=== PATIENT | male | born 1960 | race Caucasian/White ===

== ENCOUNTER 2016-11-14 07:11 | Inpatient (IN) | payer OTHER ==
[~2016-11-14] VITALS: Ht 182.9 cm; Wt 85.8 kg
--- NOTE | ~2016-11-14 | CON ---
[place], [place] REPORT OF CONSULTATION NAME: ANTONIO DIAZ UNIT #: [id number] ROOM: 516 DOCTOR: REVA SANDOVALNORMANREAL BIRTHDATE: [birth year] DOS: 11/14/2016 REQUESTING PHYSICIAN: Dr. Blair Martinez. REASON FOR CONSULTATION: Chest pain. ASSESSMENT: 1. Current presentation with previous history of chest pain. 2. Worsening symptoms in frequency and intensity. 3. Symptomatic palpitation along with shortness of breath and dyspnea on exertion. 4. Unknown level of lipids. 5. Baseline bradycardia with low blood pressure precludes any blood pressure medication. PLAN: 1. Cycle cardiac enzymes. 2. Initiate enteric-coated aspirin 81 mg. 3. No option for beta myra or nitrate products. 4. Check fasting lipid panel with management for an LDL less than 70 mg/dL. 5. Keep the patient n.p.o. for a walking stress test with nuclear. 6. Call back should there be any continued complain of chest pain despite the possibility of a normal stress test. 7. Early followup in our clinic within 4-6 weeks. HISTORY AND PHYSICAL: The patient is a pleasant 56-year-old gentleman unknown to our practice, was referred by Dr. Martinez for evaluation of chest pain that apparently has been going for the past 3 weeks. The pain is left-sided, dull, aching. In the beginning, it was occurring quite sporadically, lasting seconds, but overtime became more increased in frequency and intensity. The pain became pressure, heaviness, tightness radiating to the left shoulder and the left side of the jaw. It occurs now a few times a day. Overall, has no relation to activity. The patient started noticing about a week ago some pounding heart beats with these chest pains and subsequently shortness of breath and dyspnea on exertion. Yesterday, he had a significant episode; it reached almost 7/10. The patient felt slightly sweaty and presented to the Emergency Room. Never had this complaint before 3 weeks. He was active. Denies any specific cardiac complaint. Never had any dizziness, lightheadedness, or near syncope. No PND, orthopnea or pedal edema. No fever, no chills, no night sweats, maintained good appetite, no weight loss. PAST MEDICAL HISTORY: As detailed in my assessment. SOCIAL HISTORY: The patient denies ever any tobacco, alcohol, or illicit drug abuse. FAMILY HISTORY: The patient's father at age 83 of CVA. His mother at age 51 from a motor vehicle accident. He has 4 brothers and 2 sisters with no reported heart problems. [place], [place] REPORT OF CONSULTATION NAME: ANTONIO DIAZ UNIT #: [id number] ROOM: 516 DOCTOR: RAYNA ARDON MD BIRTHDATE: [birth year] CURRENT MEDICATIONS: Multivitamin, aspirin, Restoril, bisacodyl, Dulcolax, Tylenol. ALLERGIES: The patient has no known drug allergies. REVIEW OF SYSTEMS: The patient denies any current headache, diplopia, or blurry vision. No fever, no chills, no night sweats. No abdominal pain, no bright blood per rectum, no tarry stools. No joint pain, no muscular pain. No anxiety, no depression. No polyuria, no polydipsia. No skin rash. Review of all other systems has been negative. PHYSICAL EXAMINATION: GENERAL: The patient is alert, oriented x3, quite pleasant, slightly anxious. VITAL SIGNS: Blood pressure 115/74, heart rate 55, respiratory rate of 14, temperature 97.3. HEENT: Extraocular muscles intact. Pupils equal, round, reactive to light. Conjunctivae, no pallor. Throat, no petechiae. NECK: Good carotid upstroke. Unable to appreciate any bruit, no lymphadenopathy, no thyromegaly. HEART: S1, S2 with no rub. No retrosternal heave. CHEST AND BACK: No deformities. LUNGS: Clear to auscultation with no wheezing, no rales. ABDOMEN: Soft, nontender, present bowel sounds, no masses, no bruits. EXTREMITIES: Lower extremities, no edema with good distal pulses. NEUROLOGIC: Grossly nonfocal. SKIN: No significant rash. LABORATORY DATA: White count 6.4, hemoglobin 14.1. INR 1.0. BUN 12, creatinine 0.9, magnesium 2.2. Troponin less than 0.015. CPK-MB 3.0, CK is 115. Lipase 377. RAYNA ARDON MD CM:CONSTR:REPORT OF CONSULTATION 1036 11/15/16 0012 interface
--- NOTE | ~2016-11-14 | ST ---
[place], [place] EXERCISE STRESS TEST REPORT NAME: ANTONIO DIAZ UNIT #: [id number] ROOM: 516 DOCTOR: RAYNA ARDON MD BIRTHDATE: [birth year] DOS: INDICATION: Chest pain. PROCEDURE: The patient was exercised on a treadmill using Mick protocol, the patient exercised for 9 minutes and 30 seconds, reaching 97% of his maximum predicted heart rate. Maximum workload was 12 METS. Double product 31,800. Test was terminated due to fatigue. The patient did develop shoulder pain, which could be his angina equivalent. Slight chest pain also at the end of the exercise. The pain was completely non-limiting. BLOOD PRESSURE RESPONSE: Resting blood pressure 104/60 with ending blood pressure of 200/54. ELECTROCARDIOGRAM INTERPRETATION: Resting electrocardiogram showing sinus bradycardia, heart rate of 49. There is criteria for early repolarization. At the peak of the stress test, there was no evidence of any significant ST or T-wave changes suggestive of myocardial ischemia. No arrhythmias were noted. SUMMARY: 1. Adequate stress test with good functional capacity. 2. Negative treadmill stress test for stress induced myocardial ischemia by EKG criteria. 3. Positive treadmill stress test for stress induced myocardial ischemia by symptomatology. 4. Moderate risk stress test with Amado score. 5. Normal blood pressure at rest with normal blood pressure response to exercise. 6. No arrhythmias were noted except for rare PVCs, which were asymptomatic. 7. Nuclear images will be reported separately. RAYNA ARDON MD CM:STRESS:EXERCISE STRESS TEST REPORT [id number] RAYNA ARDON MD
[~2016-11-14 07:11] MED LIST: HYDROCODONE BIT1 T11 PO; MOTRIN800 MG PO; NKHM
[2016-11-14 07:25] VITALS: BP 144/90
[2016-11-14] MEDS ORDERED: ASPIRIN325 MG PO (07:26)
[2016-11-14] MEDS ORDERED: MEN'S MULTI-VI1 EACH PO (07:26)
[2016-11-14 07:36] LABS: BASO % 0.2 % (0.0-1.0); EOS # 0.2 10*3/uL (0.0-0.4); EOS % 3.6 % (1.0-4.0); HEMATOCRIT 41.6 % (42.0-52.0); HEMOGLOBIN 14.1 g/dl (14.0-18.0); LYMPH # 1.8 10*3/uL (1.3-4.4); LYMPH % 27.8 % (27.0-41.0); MEAN CELL VOLUME 88.1 fl (80.0-94.0); MEAN CORPUSCULAR HGB 29.9 pg (27.0-31.0); MEAN CORPUSCULAR HGB CONC 33.9 g/dl (33.0-37.0); MEAN PLATELET VOLUME 10.6 fl (9.6-12.3); MONO # 0.5 10*3/uL (0.1-1.0); NEUT # 3.9 10*3/uL (2.3-7.9); NEUT % 61.1 % (47.0-73.0); PLATELET COUNT AUTOMATED 192 10*3/uL (130-400); RED BLOOD COUNT 4.72 10*6/uL (4.50-5.90); RED CELL DISTRI WIDTH 12.7 % (0-14.5); WHITE BLOOD COUNT 6.4 10*3/uL (4.8-10.8)
[2016-11-14 07:45] LABS: PROTHROMBIN TIME 10.1 SECONDS (9.0-12.4)
[2016-11-14 07:55] LABS: ALBUMIN 3.5 gm/dl (3.1-4.5); ALKALINE PHOSPHATASE 97 U/L (45-117); BILIRUBIN, TOTAL 0.5 mg/dl (0.2-1.0); BUN 12 mg/dl (7-24); CARBON DIOXIDE 27 mmol/L (21-32); CHLORIDE 106 mmol/L (98-107); EST GLOM FILT AFRICAN AMERICAN > 60 ml/min; GLUCOSE 97 mg/dL (65-99); MAGNESIUM 2.2 mg/dL (1.5-2.1); POTASSIUM 3.9 mmol/L (3.5-5.1); SGOT/AST 30 IU/L (3-35); SGPT/ALT 43 U/L (12-78); SODIUM 142 mmol/L (136-145); TOTAL PROTEIN 7.1 gm/dL (6.4-8.2)
[2016-11-14 08:01] LABS: TROPONIN I < 0.015 ng/ml (<0.045)
[2016-11-14 08:17] VITALS: BP 126/84
[2016-11-14 08:37] VITALS: BP 122/78
[2016-11-14 09:00] VITALS: BP 115/74
[2016-11-14 10:35] LABS: CKMB 2.9 ng/ml (0.5-3.6)
[2016-11-14 10:59] LABS: CHOLESTEROL 200 mg/dL (<200); HDL CHOLESTEROL 44 mg/dl (40-60); LDL CHOLESTEROL 114 mg/dL (9-159); TRIGLYCERIDES 210 mg/dl (<150); VLDL CHOLESTEROL 42 mg/dL (6-40)
[2016-11-14 12:00] VITALS: BP 119/74
[2016-11-14 13:55] LABS: CKMB 2.6 ng/ml (0.5-3.6)
[2016-11-14] MEDS ORDERED: PROTONIX20 MG PO (15:44)
[2016-11-14 16:00] VITALS: BP 119/70
== END 2016-11-14 16:45 | disposition home or self-care (01) | DRG 313 ==
LOC: ED 07:11 → EDHOLD 08:41 → 5E 08:54
PROVIDERS: Emergency Medicine; Internal Medicine Cardiovascular Disease; Student in an Organized Health Care Education/Training Program
PROC: 4A02XM4 Measurement of Cardiac Total Activity, External Approach (ICD-10-PCS; principal; 2016-11-14)
DX: R07.9 Chest pain, unspecified (principal); E83.41 Hypermagnesemia; I10 Essential (primary) hypertension; Z96.651 Presence of right artificial knee joint; E78.1 Pure hyperglyceridemia; R00.1 Bradycardia, unspecified; Z82.3 Family history of stroke; Z79.82 Long term (current) use of aspirin; Z79.899 Other long term (current) drug therapy

== ENCOUNTER → 2017-05-27 | Day surgery (SDC) | payer OTHER ==
[~2017-05-27] VITALS: Ht 182.8 cm; Wt 83.9 kg
[~2017-05-27] MED LIST changes: +ASPIRIN325 MG PO; +MEN'S MULTI-VI1 EACH PO; +PROTONIX20 MG PO
--- NOTE | ~2017-05-27 | O ---
[place], [place] OPERATIVE NOTE NAME: ANTONIO DIAZ UNIT #: [id number] ROOM: DOCTOR: DOV IBRAHIM MD BIRTHDATE: [birth year] DOS: 05/27/2017 HISTORY OF PRESENT ILLNESS: A 57-year-old patient presented with chief complaint of persistent dyspepsia despite PPI therapy, undergoing investigation. Cardiac workup has been negative. ALLERGIES: No known medication. FAMILY HISTORY: Noncontributory. PAST SURGICAL HISTORY: Bilateral wrist repair, right knee prosthesis, left inguinal hernia. PAST MEDICAL HISTORY: GERD. SOCIAL HISTORY: Nonsmoker, rare alcohol consumer. PROCEDURE: Today's procedure part of investigation is panendoscopy plus biopsy. PREMEDICATION: Versed and Diprivan. SCOPE: Olympus forward-viewing gastroscope Q10 video. REPORT: After putting the patient in left lateral position and application of lubricant to the scope, the scope was introduced. Thereafter, under direct visualization, advanced through the length of esophagus without difficulty. Esophagus, cervical, thoracic carefully examined. Gastric pouch was entered. A 1 cm tiny hiatal hernia was noticed. Gastric pouch was entered along the greater curvature. Gastritis of mild degree seen. Antrum was biopsied. Duodenal bulb, second and third part within normal limit. The patient extubated, tolerated procedure well. IMPRESSION: Small hiatal hernia, gastritis. PLAN AND DISCUSSION: We are going to continue with Protonix. Gaviscon is going to be used 1 at bedtime p.r.n. for dyspepsia. Otherwise, antireflux measures, elevation of the head of the bed at least 8 inches. Abstinence from solid food ingestion 5 hours prior to retiring. Follow up in the office routinely with you and p.r.n. visit within 2 weeks with us for review of biopsies and reassessment. Thank you very much indeed for your kind referral. [place], [place] OPERATIVE NOTE NAME: ANTONIO DIAZ UNIT #: [id number] ROOM: DOCTOR: DOV IBRAHIM MD BIRTHDATE: [birth year] DOV IBRAHIM MD CM:OPRECORD:OPERATIVE NOTE [id number] JORDON IBRAHIM MD 05/27/17 1256 interface
[2017-05-27 11:05] VITALS: BP 110/74
[2017-05-27 12:08] VITALS: BP 105/59
[2017-05-27 12:23] VITALS: BP 121/75
[2017-05-27 12:35] VITALS: BP 124/70
== END | disposition home or self-care (01) ==
LOC: SDC 05-21 10:15
DX: K29.50 Unspecified chronic gastritis without bleeding (principal); K21.9 Gastro-esophageal reflux disease without esophagitis; Z98.890 Other specified postprocedural states; K44.9 Diaphragmatic hernia without obstruction or gangrene; Z88.5 Allergy status to narcotic agent

== ENCOUNTER → 2020-03-14 | Outpatient (CLI) | payer OTHER ==
[~2020-03-14] MED LIST changes: +CIALIS5 MG PO; +NEXIUM40 MG PO
== END | disposition home or self-care (01) ==
LOC: COVID19 00:13
PROVIDERS: ATTEND Surgery
DX: Z01.812 Encounter for preprocedural laboratory examination (principal); Z20.828 Contact with and (suspected) exposure to other viral communicable diseases

== ENCOUNTER → 2020-03-19 | Day surgery (SDC) | payer OTHER ==
[~2020-03-19] VITALS: Ht 182.8 cm; Wt 85.3 kg
[2020-03-19 10:04] VITALS: BP 116/63
[2020-03-19 11:34] VITALS: BP 112/68
[2020-03-19 11:49] VITALS: BP 113/64
[2020-03-19 12:03] VITALS: BP 119/81
== END | disposition home or self-care (01) ==
LOC: SDC 03-15 10:15
PROVIDERS: ATTEND Surgery
DX: Z12.11 Encounter for screening for malignant neoplasm of colon (principal); D12.5 Benign neoplasm of sigmoid colon; K29.50 Unspecified chronic gastritis without bleeding; K57.30 Diverticulosis of large intestine without perforation or abscess without bleeding; K21.9 Gastro-esophageal reflux disease without esophagitis; Z79.899 Other long term (current) drug therapy; Z98.890 Other specified postprocedural states

== ENCOUNTER → 2020-07-05 | Outpatient (CLI) | payer OTHER | END | disposition home or self-care (01) | LOC: COVID19 10:05 | PROVIDERS: ATTEND Family Medicine | DX: Z20.822 Contact with and (suspected) exposure to COVID-19 (principal) ==

== ENCOUNTER → 2021-01-23 | Outpatient (CLI) | payer OTHER | END | disposition home or self-care (01) | LOC: RAD 16:37 | PROVIDERS: ATTEND Family Medicine | DX: M51.36 Other intervertebral disc degeneration, lumbar region (principal); M46.04 Spinal enthesopathy, thoracic region; M54.9 Dorsalgia, unspecified ==

== ENCOUNTER → 2021-11-26 | Outpatient (CLI) | payer OTHER | END | disposition home or self-care (01) | LOC: CT 13:56 | PROVIDERS: ATTEND Family Medicine | DX: R91.1 Solitary pulmonary nodule (principal); M51.34 Other intervertebral disc degeneration, thoracic region; R06.02 Shortness of breath; R93.89 Abnormal findings on diagnostic imaging of other specified body structures; Z77.22 Contact with and (suspected) exposure to environmental tobacco smoke (acute) (chronic) ==

== ENCOUNTER → 2022-01-30 | Outpatient (CLI) | payer OTHER | END | disposition home or self-care (01) | LOC: US 01-07 14:00 | PROVIDERS: ATTEND Family Medicine | DX: N43.2 Other hydrocele (principal); N50.89 Other specified disorders of the male genital organs; N43.40 Spermatocele of epididymis, unspecified ==

== ENCOUNTER → 2022-04-01 | Outpatient (CLI) | payer OTHER | END | disposition home or self-care (01) | LOC: RAD 17:03 | PROVIDERS: ATTEND Family Medicine | DX: M53.3 Sacrococcygeal disorders, not elsewhere classified (principal); M25.78 Osteophyte, vertebrae ==

== ENCOUNTER → 2022-05-08 | Outpatient (CLI) | payer OTHER | END | disposition home or self-care (01) | LOC: MRI 00:21 | PROVIDERS: ATTEND Family Medicine | DX: M47.816 Spondylosis without myelopathy or radiculopathy, lumbar region (principal); M48.061 Spinal stenosis, lumbar region without neurogenic claudication; M48.07 Spinal stenosis, lumbosacral region; M25.78 Osteophyte, vertebrae; M53.3 Sacrococcygeal disorders, not elsewhere classified ==

== ENCOUNTER → 2022-05-28 | Outpatient (CLI) | payer OTHER | END | disposition home or self-care (01) | LOC: MRI 15:08 → RAD 15:08 | PROVIDERS: ATTEND Chiropractor Orthopedic | DX: M54.50 Low back pain, unspecified (principal) ==

== ENCOUNTER → 2023-03-10 | Outpatient (CLI) | payer OTHER | END | disposition home or self-care (01) | LOC: US 16:00 | PROVIDERS: ATTEND Family Medicine | DX: M79.89 Other specified soft tissue disorders (principal); R20.0 Anesthesia of skin ==

== ENCOUNTER → 2023-12-29 | Outpatient (CLI) | payer OTHER | END | disposition home or self-care (01) | LOC: RAD 07:30 | PROVIDERS: ATTEND Family Medicine | DX: M19.032 Primary osteoarthritis, left wrist (principal) ==

== ENCOUNTER → 2024-01-06 | Outpatient (CLI) | payer OTHER ==
[~2024-01-06] MED LIST changes: +IOHEXOL 300 MG/ML 100 ML VIAL IV ONE
== END | disposition home or self-care (01) ==
LOC: CT 07:46
PROVIDERS: ATTEND Surgery
DX: K40.90 Unilateral inguinal hernia, without obstruction or gangrene, not specified as recurrent (principal); R10.30 Lower abdominal pain, unspecified; N40.0 Benign prostatic hyperplasia without lower urinary tract symptoms; K42.9 Umbilical hernia without obstruction or gangrene

== ENCOUNTER → 2024-01-28 | Day surgery (SDC) | payer OTHER ==
[~2024-01-28] VITALS: Ht 182.8 cm; Wt 90.7 kg
[~2024-01-28] MED LIST changes: +ACETAMINOPHEN 100 ML IV ONE; +BUPIVACAINE 0.5% 30 ML IV ONE; +Dexamethasone Sodium Phospha 4 MG/ML VIAL IV ONE; +HYDROmorphONE Hydrochloride 0.5 MG/0.5 ML SYRINGE IV PRN; +HYDROmorphONE Hydrochloride 0.5 MG/0.5 ML SYRINGE ONE; -IOHEXOL 300 MG/ML 100 ML VIAL IV ONE; +Ketorolac Tromethamine 30 MG/ML VIAL IV ONE; +Lactated Ringer's Solution 1,000 ML IV ONE; +Lidocaine Hydrochloride 2% 5 ML SDV IV ONE; +OXYCODONE HCL (IR) 5 MG TAB PO PRN; +Ondansetron Hydrochloride 4 MG/2 ML VIAL IV ONE; +PERCOCET 5-3251 EACH PO; +PROPOFOL 200 MG/20 ML VIAL IV ONE; +ROCURONIUM BROMIDE 50 MG/5 ML SYRINGE IV ONE; +SEVOFLURANE 250 ML BOT INH ONE; +SODIUM CHLORIDE 0.9% 0 ML IV ONE; +SUGAMMADEX SODIUM 200 MG/2 ML VIAL IV ONE; +ceFAZolin sodium/sodium chlor 1 GM/10 ML SYR IV ONE; +ceFAZolin sodium/sodium chlor 20 ML IV ONE; +fentaNYL CITRATE 100 MCG/2 ML VIAL IV ONE
[2024-01-28 09:21] VITALS: BP 124/63
[2024-01-28 11:55] VITALS: BP 120/55
[2024-01-28 12:10] VITALS: BP 123/55; BP 132/50
[2024-01-28 12:26] VITALS: BP 124/62
[2024-01-28 12:40] VITALS: BP 118/57
== END | disposition home or self-care (01) ==
LOC: SDC 01-25 09:30
PROVIDERS: ATTEND Surgery
DX: K40.20 Bilateral inguinal hernia, without obstruction or gangrene, not specified as recurrent (principal); K21.9 Gastro-esophageal reflux disease without esophagitis; F10.90 Alcohol use, unspecified, uncomplicated; Z96.651 Presence of right artificial knee joint; Z79.899 Other long term (current) drug therapy; Z98.890 Other specified postprocedural states; Z82.49 Family history of ischemic heart disease and other diseases of the circulatory system